=== PATIENT | female | born 1995 | race Caucasian/White ===

== ENCOUNTER 2017-08-24 11:33 | Inpatient (IN) | payer OTHER ==
[~2017-08-24] VITALS: Ht 167.6 cm; Wt 63.5 kg
[2017-08-24] MEDS ORDERED: IV NS 1000 ML 1,000 ML IV ONE ×2 (11:45→13:45)
[2017-08-24] MEDS ORDERED: SUBOXONE PO (11:52)
[2017-08-24] MEDS ORDERED: LAMO200T2 PO (11:52)
[2017-08-24] MEDS ORDERED: TOPI50TA PO (11:52)
[2017-08-24] MEDS ORDERED: BUPR100T5 PO (11:52)
[2017-08-24] MEDS ORDERED: LORAZEPAM 2 MG/1 ML VIAL IV ONE (12:00)
[2017-08-24 12:10] LABS: BASOPHILS % (AUTO) 0.4 % (0.0-2.0); EOSINOPHILS # (AUTO) 0.2 K/uL (0.0-0.7); EOSINOPHILS % (AUTO) 2.4 % (0.0-7.0); HEMATOCRIT 40.3 % (37-47); HEMOGLOBIN 13.5 G/DL (12.0-16.0); LYMPHOCYTES # (AUTO) 1.9 K/UL (0.8-4.8); LYMPHOCYTES % (AUTO) 25.8 % (20.5-51.5); MEAN CORPUSCULAR HEMOGLOBIN 30.6 UUG (27.0-31.0); MEAN CORPUSCULAR HGB CONC 34 g/dL (32.0-37.0); MEAN CORPUSCULAR VOLUME 91.1 FL (81.0-99.0); MONOCYTES # (AUTO) 0.8 K/UL (0.1-1.30); NEUTROPHILS # (AUTO) 4.5 K/UL (1.8-8.9); NEUTROPHILS % (AUTO) 60.4 % (38.5-71.5); PLATELET COUNT (AUTO) 366 K/UL (150-450); RED BLOOD CELL COUNT(AUTO) 4.42 MIL/UL (4.2-5.4); WHITE BLOOD COUNT (AUTO) 7.4 K/UL (4.0-11.2)
[2017-08-24 12:11] LABS: CREATININE 1.1 mg/dL (0.6-1.3); POTASSIUM 2.9 mmol/L (3.5-5.1)
[2017-08-24 12:17] LABS: BILIRUBIN,TOTAL 0.3 mg/dL (0.2-1.0); TOTAL PROTEIN, SERUM 7.2 g/dL (6.4-8.2)
[2017-08-24] MEDS ORDERED: LORAZEPAM 2 MG/1 ML VIAL ONE (12:26)
[2017-08-24] MEDS ORDERED: POTASSIUM CHLORIDE 20 MEQ TAB.PRT.SR PO ONE (12:45)
[2017-08-24] MEDS ORDERED: ONDANSETRON 4 MG/2 ML VIAL IV PRN (13:15)
[2017-08-24] MEDS ORDERED: ACETAMINOPHEN 325 MG TABLET PO PRN (13:15)
[2017-08-24] MEDS ORDERED: DILTIAZEM HCL IV 10 MG in IV DEXTROSE 5% 100 ML IV PRN (13:15)
[2017-08-24] MEDS ORDERED: Z GUARD REMEDY PASTE 57 GM TUBE TOP PRN (13:15)
[2017-08-24] MEDS ORDERED: MAGNESIUM HYDROXIDE 30 ML LIQUID UDC PO PRN (13:15)
[2017-08-24] MEDS ORDERED: HYDROCODONE/APAP 5-325MG TABLET PO PRN (13:15)
[2017-08-24 15:20] LABS: *BILIRUBIN,URIN NEGATIVE (NEGATIVE); *BLOOD, URINE NEGATIVE (NEGATIVE); *CLARITY,URINE CLEAR (CLEAR); *COLOR,URINE YELLOW (YELLOW); *KETONES,URINE NEGATIVE (NEGATIVE); *PROTEIN,URINE NEGATIVE (NEGATIVE); *UROBILINOGEN,URINE 0.2 E.U./dl (NORMAL); LEUKOCYTE ESTERASE ,URINE TRACE (NEGATIVE); NITRITE, URINE NEGATIVE (NEGATIVE); PH,URINE 7.5 (5.0-8.0); UGLUCOSE NEGATIVE (NEGATIVE)
[2017-08-24 15:24] LABS: *AMPHETAMINE, URINE NEGATIVE (NEGATIVE); *BARBITURATE, URINE NEGATIVE (NEGATIVE); *CANNABINOID, URINE NEGATIVE (NEGATIVE); *COCCAINE, URINE NEGATIVE (NEGATIVE); *OPIATE, URINE POSITIVE (NEGATIVE); *PHENCYCLIDINE SCREEN,URINE NEGATIVE (NEGATIVE)
[2017-08-24 15:32] LABS: *URINE HCG, QUAL NEGATIVE (NEGATIVE)
[2017-08-24 15:44] LABS: BACTERIA,URINE MODERATE /HPF (NONE SEEN); RBC,URINE 0-3 /HPF (0-3); SQUAMOUS EPITHELIAL CELL,UR MODERATE /HPF (NONE SEEN)
[2017-08-24] MEDS ORDERED: DILTIAZEM HCL 25 MG IV IV PRN (15:45)
[2017-08-24 15:50] VITALS: BP 122/78
[2017-08-24] MEDS: IV NS 1000 ML 1,000 ML IV PRN (16:44)
[2017-08-24] MEDS: LORAZEPAM 2 MG/1 ML VIAL IV PRN (17:24)
[2017-08-24] MEDS ORDERED: 3 DAY TAPER BUPRENORPHINE -SERENITY PROTOCOL SL PRN (18:00)
[2017-08-24 20:29] VITALS: BP 105/71
[2017-08-25 00:19] VITALS: BP 105/69
[2017-08-25] MEDS: LORAZEPAM 2 MG/1 ML VIAL IV PRN ×2 (04:15→14:02)
[2017-08-25] MEDS: IV NS 1000 ML 1,000 ML IV PRN (04:21)
[2017-08-25 04:48] VITALS: BP 106/69
[2017-08-25 06:43] LABS: MAGNESIUM 2.1 mg/dL (1.8-2.4); PHOSPHOROUS 3.6 mg/dL (2.5-4.9); POTASSIUM 3.9 mmol/L (3.5-5.1)
[2017-08-25 06:54] LABS: BASOPHILS % (AUTO) 0.5 % (0.0-2.0); EOSINOPHILS # (AUTO) 0.1 K/uL (0.0-0.7); EOSINOPHILS % (AUTO) 1.8 % (0.0-7.0); HEMATOCRIT 36.4 % (31.2-41.9); HEMOGLOBIN 12.6 g/dL (10.9-14.3); LYMPHOCYTES # (AUTO) 1.8 K/uL (20.0-40.0); LYMPHOCYTES % (AUTO) 27.9 % (20.5-51.5); MEAN CORPUSCULAR HEMOGLOBIN 31.7 uug (24.7-32.8); MEAN CORPUSCULAR HGB CONC 35 g/dL (32.3-35.6); MEAN CORPUSCULAR VOLUME 91.9 fL (75.5-95.3); MONOCYTES # (AUTO) 0.6 K/uL (2.0-10.0); MONOCYTES % (AUTO) 8.9 % (0.0-11.0); NEUTROPHILS % (AUTO) 60.9 % (38.5-71.5); PLATELET COUNT (AUTO) 279 K/uL (179-408); RED BLOOD CELL COUNT(AUTO) 3.96 MIL/uL (3.63-4.92); WHITE BLOOD COUNT (AUTO) 6.6 K/uL (3.8-11.8)
[2017-08-25] MEDS ORDERED: TOPIRAMATE 25 MG TABLET PO SCH (09:00)
[2017-08-25] MEDS ORDERED: SUBOXONE PO SCH (09:00)
[2017-08-25] MEDS ORDERED: buPROPion SR 100 MG TABLET.SA PO SCH (09:00)
[2017-08-25] MEDS ORDERED: LAMOTRIGINE 200 MG TABLET PO SCH (09:00)
[2017-08-25] MEDS ORDERED: CEPH-570 PO (11:07)
[2017-08-25 11:09] VITALS: BP 114/79
[2017-08-25 15:08] VITALS: BP 114/70
== END 2017-08-25 15:13 | disposition other institution (70) | DRG 309 ==
LOC: ER 11:33 → TELE 14:49 → TELE-TD 16:35 → TELE 17:17
PROVIDERS: ADMIT Internal Medicine; ATTEND Internal Medicine
DX: R00.0 Tachycardia, unspecified (principal); F15.93 Other stimulant use, unspecified with withdrawal; E87.6 Hypokalemia; F11.23 Opioid dependence with withdrawal; N39.0 Urinary tract infection, site not specified; F32.9 Major depressive disorder, single episode, unspecified; F41.9 Anxiety disorder, unspecified; F17.210 Nicotine dependence, cigarettes, uncomplicated
CPT/HCPCS: 36415; 70030-TC; 70450; 71010; 80307; 83735; 84100; 84703; 85025; 85610; 93005; A4663; J2060; J3490; J7030